=== PATIENT | male | born 1960 | race Caucasian/White ===

== ENCOUNTER 2019-12-19 09:54 | Outpatient (CLI) | payer MEDICAID, SELFPAY ==
--- NOTE | 2019-12-19 12:15 | ONC FU_ITS ---
Dr. Saeed follow up note Patient: Ron Robles Unit #: [id number]: 1960 Dicatated By: Luis Maunel Saeed M.D.Date of Visit:Dec 19, 2019 Onc Med Follow-up/Prog Note History of Present Illness: Mr. Robles is a 58-year-old gentleman with recent history of acute mental status changes including ataxia with frequent falls, loss of short-term memory and severe headaches. He underwent CT scan of the head in March 2018 which showed extensive edema surrounding an apparent mass in the left parieto-occipital region. Mr Robles was referred to [facility] for further evaluation. He did have a cranial MRI scan done on 03/20/2018 which confirmed a solitary 2.5 cm left parietal occipital mass. CT scan of chest done on 03/22/2018 showed numerous nodules consistent with pulmonary metastatic disease bilaterally. The largest nodule was 1.9 cm right lower lobe. Marginal adenopathy was evident in the right hilar, AP window, pretracheal and subcarinal regions. CT scan of abdomen pelvis showed an 8 cm mass in the right kidney, with no evident of merry, hepatic or osseous disease. CT-guided biopsy of nodule in right lower lobe was done on 03/26/2018 and it reported metastatic renal cell carcinoma. On 03/27/2018 he underwent left parieto-occipital craniotomy with resection of the solitary intracranial metastasis. Postop cranial MRIs done on 03/28/2018 showed no evidence of residual tumor or acute complication. now s/p postop cranial radiation. Status post palliative right nephrectomy on 08/03/2018 Now being treated with Sutent since 06/11/2018 Follow-up CT scan of chest done on 10/25/2018 showed numerous multilobar pulmonary nodules with the largest measuring 20 mm in the right lower lobe consistent with metastatic disease Necrotic lymph node right suprahilar region measures 1.6 cm status post right nephrectomy Cholelithiasis Right lower lobe segmental pulmonary embolism. When compared with CT scan of chest done on 03/22/2018 which showed multiple bilateral pulmonary nodules the largest being 1.9 cm in the right lower lobe and right hilar lymph node 1.5 cm. Follow-up CT scan of chest abdomen pelvis done on 03/06/2019 showed stable disease e.g. multiple bilateral pulmonary nodules largest being in right lower lobe is 2.3 cm compared to 2 cm in October 2018 Stable right hilar lymph node No intra-abdominal metastatic disease. Indeterminate left adrenal upper pole measuring lesion 17.5 mm status post right kidney is absent status post multiple left renal cysts complaining of progressive headaches, patient has seen Dr. Martinez who has recommended changing his Keppra to depokate , In April 2019 due to progression of DVT in right lower leg, his primary care physician start him on Xarelto 2.5 mg daily. f/uMRI scan of the head done on 07/11/2019 showed postop findings are noted at the left occipital lobe. No evidence of recurrent or residual disease. Moderate to severe chronic microvascular disease. CT scan of chest abdomen pelvis done on 07/11/2019 at [facility] showed persistent but stable innumerable bilateral pulmonary nodules the largest measured 2.6 cm in the right lower lobe compared to 2.4 mm seen on previous CT scan of chest done on 03/06/2019 and enlarged mediastinal lymph nodes seen again the largest is 2.6 x 1.7 cm compared to 1.5 cm in February 2019 no significant findings seen in below diaphragm except left kidney showed multiple low density lesions most of these are too small to characterize. The largest in the inferior pole has Hounsfield unit of 4 on the delayed phase is compatible with simple cyst. No other abnormality seen. follow-upCT PET scan done on 11/12/2019 showed innumerable lung lesions largest being 3.1 cm in the right lung posterior and other or smaller in the range of 1-2 cm, 12-15 lesions in the left lung and 15-20 lesions in the right lung and is a also liver lesion , too centimeter in diameter in the right lobe with SUV 6.5. Lesion in the left ischium Tolerating Sutent well. Since last visit, Patient was in the hospital with pneumonia and sepsis/septic shock on 11/28/2019 at that time his ANC was 680. Now recovered denies any fever or chills, denies any nausea or vomiting denies any diarrhea constipation denies any hemoptysis or hematemesis denies any dysuria or hematuria. Patient has episode of fall as he tripped over something. But no seizure-like activity. Also complaining of generalized weakness and fatigue.As per his son, Sutent is on hold since his last hospitalization on 11/28/2019. And also repeating new refill to start next cycle. Medications: Dexamethasone Sod Phosphate PF 1 mL (of 10 mg/mL) Injection PRN, Docusate Sodium 1 - 2 Tablet (of 100 mg) Oral daily PRN, FentaNYL 1 Patch(es) (of 100 mcg/hr) Patch 72 Hr Transdermal q 3 days, Folic Acid 1 Tablet (of 1 mg) Oral daily, Gabapentin 1 Tablet (of 100 mg) Oral b.i.d., Lasix 1 Tablet (of 40 mg) Oral midday, Lasix 1 Tablet (of 80 mg) Oral daily, LORazepam 1 Tablet (of 0.5 mg) Oral at bedtime, MiraLax 1 Pack Oral daily PRN, oxyCODONE-Acetaminophen 1 Tablet (of 5-325 mg) Oral q 6 hours, Protonix 1 Tablet (of 40 mg) Tablet, enteric coated Oral daily, Zofran Injectable Oral Allergies: No Known Allergies. Review of Systems: Constitutional - Appetite is fair and weight is stable. No fever, chills, hot flashes, or night sweats. Energy level is poor, ENMT - No sinus congestion/drainage. No mouth sores. No sore throat or difficulty swallowing, Hematologic/Lymphatic - Patient reports bruising easily, Respiratory - Occasional shortness of breath with exertion. No cough. No pleuritic pain or hemoptysis. Pt was recently hospitalized with pneumonia, Cardiovascular - No angina pain. No palpitations, Gastrointestinal - No constipation. No nausea and vomiting. No heartburn or acid reflux. No diarrhea. No blood in the stool or black stools, Genitourinary (M) - Patient has dysuria and urinary frequency. No urgency or incontinence. Infrequent hematuria, Musculoskeletal - Chronic back pain. Positive for bone pain, Neurologic - Occasional headache or dizziness. No numbness/paresthesias or other focal neurologic symptoms, Psychiatric - Patient has anxiety and depression. Positive for insomnia. Vital Signs: Performed on Dec 19, 2019 10:02 Height - 73.00 in Weight - 247.0 lbs (HIGH) BSA - 2.35 sq.m BMI - 32.59 (HIGH) Temperature - 98.7 F Pulse - 90 /min Respiration - 20 /min BP - 128/80 mm(hg) O2 Sat - 92 % (LOW) Pain - 6 Performance Status: 1 - No physically strenuous activity, but ambulatory and able to carry out light or sedentary work (e.g. office work, light house work). (ECOG) Physical Examination: Respiratory - Lungs without wheezing, Extremities - extensive bruising on the upper extremities and 1+ edema lower extremities. Lab/Imaging: Test performed on Dec 18, 2019 10:30 Glucose 106 mg/dL BUN 26 mg/dL Creatinine 1.1 mg/dL Cr Clearance (Est) 116.0000 mL/min BUN/Creatinine Ratio 24 Absolute Value Sodium 134.0 mmol/L Potassium 3.60 mmol/L Chloride 94.0 mmol/L CO2 33 mmol/L Calcium 8.80 mg/dL Protein, Total 5.80 g/dL Albumin 3.4 g/dL Globulin 2.4 g/dL Bilirubin, Total 0.8 mg/dL Alkaline Phosphatase 55 IU/L AST (SGOT) 23.0 IU/L ALT (SGPT) 19 IU/L WBC 8.0 10^9/L RBC 3.26 10^12/L HGB 11.1 g/dL HCT 33.0 % MCV 101.0 fl MCH 34.1 pg MCHC 33.7 g/dL RDW 16.4 % Platelet Count 195 10^9/L MPV 7.0 fL Neutrophils (Gran) 5.28 10^9/L Lymphocytes 1.74 10^9/L Monocytes 0.78 10^9/L Eosinophils 0.12 10^9/L Basophils 0.04 10^9/L Manual Lymphocytes 21.9 % Manual Monocytes 9.8 % Manual Eosinophils 1.50 % Manual Basophils 0.50 % Test performed on Jul 24, 2019 13:15 TSH 2.45 uIU/mL Anion Gap 15.2 eGFR 77.0 mL/min Neutrophil % 56.2 % Lymphocyte % 28.6 % Monocyte % 11.7 % Eosinophil % 3.1 % Basophils % 0.4 % Impression: 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 scan of abdomen/pelvis showed 8 cm mass in the right kidney, with no evidence of merry, hepatic or osseous disease. Treated with adjuvant whole brain radiation starting 04/30/2018. Insomnia/occasional hallucination etiology appears multifactorial including underlying adjustment disorder/depression due to newly diagnosed metastatic renal cell carcinoma and/or recent of his young son who committed suicide, business loss due to sickness. Renal cell prognostic profiling is concerning based on international metastatic renal cell cancer database Consortium criteria , he is low/intermediate risk. In this case, recommended sunitinib 50 mg daily for 4 weeks on and then 2 weeks off and then repeat. Plan to give him 3 cycles and then repeat CT scan to assess disease response. If disease progression, then consider immunotherapy. First cycle of 4 weekly Sutent started on 06/11/2018 Status post right nephrectomy on 07/24/2018 Follow-up CT scan of chest done on 10/25/2018 showed multiple bilateral pulmonary nodules largest is to centimeter in the right lower lobe and stable right hilar lymph node measuring 1.6 cm And right lower lobe segmental pulmonary embolus when compared with CT scan of chest done on 03/22/2018 is a no significant change. CT scan of chest abdomen pelvis was done on 03/06/2019 showed multiple bilateral pulmonary nodules, the largest being in right lower lobe measuring 2.4 cm and stable right hilar lymph node and subcentimeter mediastinal lymph nodes, when compared with CT scan from October 2018, there is a no evidence of disease progression rather stable disease and no intra-abdominal disease There is indeterminate left renal upper pole lesion measuring 1.7 cm and multiple left renal cysts seen and status post right nephrectomy Plan: Discussed with patient regarding his labs white blood count 8 hemoglobin 11.1 crit 33 platelets 195,000 and CMP within normal limits and CT PET scan findings which showed stable disease/mild progression e.g. new single hepatic lesion. Clinically, patient is doing well, tolerating Sutent well but with expected side effects e.g. neutropenia, mild anemia, generalized weakness and fatigue. His follow-up CT PET scan showed stable metastatic disease to the lungs, slightly increased right lung index lesion 3.1 cm compared to 2.[address] scan of chest done in June 2020 and and single 2 cm liver metastases. Considering his overall performance status and stable/mild progression on Sutent, at this point we'll continue same and repeat scans in 3 months. Our office will try to arrange is Sutent as soon as possible so patient will start next cycle. Again intent of therapy is palliation and quality of life. Discussed with patient and his son on the telephone they expressed full understanding. Patient will return to clinic in one month with CBC CMP or we may discuss with him on face time. Signed By: Luis Manuel Saeed M.D. <<Signature on File>>
== END 2019-12-19 09:55 | disposition home or self-care (01) ==
LOC: ONCMED 09:59
PROVIDERS: Family Provider Family Medicine; PCP Family Medicine; Visit Provider Internal Medicine Hematology & Oncology
DX: C78.01 Secondary malignant neoplasm of right lung (principal); C78.02 Secondary malignant neoplasm of left lung; C79.31 Secondary malignant neoplasm of brain; C64.1 Malignant neoplasm of right kidney, except renal pelvis; G89.29 Other chronic pain; M54.9 Dorsalgia, unspecified; Z79.01 Long term (current) use of anticoagulants; Z79.899 Other long term (current) drug therapy; Z79.891 Long term (current) use of opiate analgesic; Z92.3 Personal history of irradiation; Z90.5 Acquired absence of kidney; Z86.711 Personal history of pulmonary embolism; Z86.718 Personal history of other venous thrombosis and embolism; Z87.01 Personal history of pneumonia (recurrent)
CPT/HCPCS: 99214

== ENCOUNTER 2020-01-17 10:18 | Outpatient (CLI) | payer MEDICAID, SELFPAY ==
--- NOTE | 2020-01-17 12:43 | ONC FU_ITS ---
Dr. Saeed follow up note Patient: Ron Robles Unit #: [id number]: 1960 Dicatated By: Luis Manuel Saeed M.D.Date of Visit:January 17, 2020 Onc Med Follow-up/Prog Note History of Present Illness: Mr. Robles is a 59-year-old gentleman with recent history of acute mental status changes including ataxia with frequent falls, loss of short-term memory and severe headaches. He underwent CT scan of the head in March 2018 which showed extensive edema surrounding an apparent mass in the left parieto-occipital region. Mr Robles was referred to [facility] for further evaluation. He did have a cranial MRI scan done on 03/20/2018 which confirmed a solitary 2.5 cm left parietal occipital mass. CT scan of chest done on 03/22/2018 showed numerous nodules consistent with pulmonary metastatic disease bilaterally. The largest nodule was 1.9 cm right lower lobe. Marginal adenopathy was evident in the right hilar, AP window, pretracheal and subcarinal regions. CT scan of abdomen pelvis showed an 8 cm mass in the right kidney, with no evident of merry, hepatic or osseous disease. CT-guided biopsy of nodule in right lower lobe was done on 03/26/2018 and it reported metastatic renal cell carcinoma. On 03/27/2018 he underwent left parieto-occipital craniotomy with resection of the solitary intracranial metastasis. Postop cranial MRIs done on 03/28/2018 showed no evidence of residual tumor or acute complication. now s/p postop cranial radiation. Status post palliative right nephrectomy on 08/03/2018 Now being treated with Sutent since 06/11/2018 Follow-up CT scan of chest done on 10/25/2018 showed numerous multilobar pulmonary nodules with the largest measuring 20 mm in the right lower lobe consistent with metastatic disease Necrotic lymph node right suprahilar region measures 1.6 cm status post right nephrectomy Cholelithiasis Right lower lobe segmental pulmonary embolism. When compared with CT scan of chest done on 03/22/2018 which showed multiple bilateral pulmonary nodules the largest being 1.9 cm in the right lower lobe and right hilar lymph node 1.5 cm. Follow-up CT scan of chest abdomen pelvis done on 03/06/2019 showed stable disease e.g. multiple bilateral pulmonary nodules largest being in right lower lobe is 2.3 cm compared to 2 cm in October 2018 Stable right hilar lymph node No intra-abdominal metastatic disease. Indeterminate left adrenal upper pole measuring lesion 17.5 mm status post right kidney is absent status post multiple left renal cysts complaining of progressive headaches, patient has seen Dr. Martinez who has recommended changing his Keppra to depokate , In April 2019 due to progression of DVT in right lower leg, his primary care physician start him on Xarelto 2.5 mg daily. f/uMRI scan of the head done on 07/11/2019 showed postop findings are noted at the left occipital lobe. No evidence of recurrent or residual disease. Moderate to severe chronic microvascular disease. CT scan of chest abdomen pelvis done on 07/11/2019 at [facility] showed persistent but stable innumerable bilateral pulmonary nodules the largest measured 2.6 cm in the right lower lobe compared to 2.4 mm seen on previous CT scan of chest done on 03/06/2019 and enlarged mediastinal lymph nodes seen again the largest is 2.6 x 1.7 cm compared to 1.5 cm in February 2019 no significant findings seen in below diaphragm except left kidney showed multiple low density lesions most of these are too small to characterize. The largest in the inferior pole has Hounsfield unit of 4 on the delayed phase is compatible with simple cyst. No other abnormality seen. follow-upCT PET scan done on 11/12/2019 showed innumerable lung lesions largest being 3.1 cm in the right lung posterior and other or smaller in the range of 1-2 cm, 12-15 lesions in the left lung and 15-20 lesions in the right lung and is a also liver lesion , too centimeter in diameter in the right lobe with SUV 6.5. Lesion in the left ischium Tolerating Sutent well. , Patient was in the hospital with pneumonia and sepsis/septic shock on 11/28/2019 at that time his ANC was 680. Now recovered denies any fever or chills, denies any nausea or vomiting denies any diarrhea constipation denies any hemoptysis or hematemesis denies any dysuria or hematuria. Patient has episode of fall as he tripped over something. But no seizure-like activity. Also complaining of generalized weakness and fatigue.As per his son, Sutent is on hold since his last hospitalization on 11/28/2019. Came for follow-up, complaining of generalized weakness and fatigue, unable to maintain balance, excessive sleep during daytime, not getting enough sleep at night, but no headaches blurred vision double vision, no seizure-like activity, no fever or chills, chronic hip pain is under control with current pain medication which include Duragesic patch and hydrocodone. No nausea or vomiting, no fever or chills, no hemoptysis or hematemesis, no hematuria. Medications: Dexamethasone Sod Phosphate PF 1 mL (of 10 mg/mL) Injection PRN, Docusate Sodium 1 - 2 Tablet (of 100 mg) Oral daily PRN, FentaNYL 1 Patch(es) (of 100 mcg/hr) Patch 72 Hr Transdermal q 3 days, Folic Acid 1 Tablet (of 1 mg) Oral daily, Gabapentin 1 Tablet (of 100 mg) Oral b.i.d., Lasix 1 Tablet (of 40 mg) Oral midday, Lasix 1 Tablet (of 80 mg) Oral daily, LORazepam 1 Tablet (of 0.5 mg) Oral at bedtime, MiraLax 1 Pack Oral daily PRN, oxyCODONE-Acetaminophen 1 Tablet (of 5-325 mg) Oral q 6 hours, Protonix 1 Tablet (of 40 mg) Tablet, enteric coated Oral daily, Zofran Injectable Oral Allergies: No Known Allergies. Review of Systems: Constitutional - Appetite is poor and weight is stable. No fever, chills, hot flashes, or night sweats. Energy level is extremely poor, Pt appears lethargic and falls asleep during visit, ENMT - No sinus congestion/drainage. No mouth sores. No sore throat or difficulty swallowing, Hematologic/Lymphatic - Patient reports bruising easily, Respiratory - Positive for shortness of breath with exertion. No cough. No pleuritic pain or hemoptysis, Cardiovascular - No angina pain. No palpitations, Gastrointestinal - No constipation. No nausea and vomiting. No heartburn or acid reflux. No diarrhea. No blood in the stool or black stools, Genitourinary (M) - Patient has dysuria and urinary frequency. No urgency or incontinence, Musculoskeletal - Chronic back pain. Positive for bone pain, Integumentary - Pt has numerous abrasions and bruises from recent falls, Neurologic - Occasional headache or dizziness. No numbness/paresthesias or other focal neurologic symptoms, Psychiatric - Patient has anxiety and depression. Positive for insomnia. Vital Signs: Performed on January 17, 2020 10:54 Height - 73.00 in Weight - 236.2 lbs (LOW) BSA - 2.31 sq.m BMI - 31.16 (HIGH) Temperature - 97.6 F (LOW) Pulse - 89 /min Respiration - 17 /min BP - 101/67 mm(hg) O2 Sat - 89 % (LOW) Pain - 8 Performance Status: 3 - Capable of only limited self-care, confined to bed or chair more than 50% of waking hours. (ECOG) Physical Examination: ENMT - denies mouth sores or thrush, Respiratory - poor air entry, no wheezing, Cardiovascular - Regular rate and rhythm, Abdomen - bowel sounds present, nontender, Extremities - 1+ edema bilaterally. Lab/Imaging: Test performed on Jan 15, 2020 13:00 Glucose 95 mg/dL BUN 31 mg/dL Creatinine 1.1 mg/dL Cr Clearance (Est) 116.00 mL/min Sodium 134.0 mmol/L Potassium 3.50 mmol/L Chloride 96.0 mmol/L CO2 27 mmol/L Calcium 8.90 mg/dL Protein, Total 6.10 g/dL Albumin 3.6 g/dL Globulin 2.5 g/dL Bilirubin, Total 0.7 mg/dL Alkaline Phosphatase 46 IU/L AST (SGOT) 18.0 IU/L ALT (SGPT) 15 IU/L WBC 11.5 10^9/L RBC 3.53 10^12/L HGB 11.4 g/dL HCT 34.4 % MCV 97.0 fl MCH 32.2 pg MCHC 33.1 g/dL RDW 14.9 % Platelet Count 231 10^9/L MPV 6.9 fL Test performed on Dec 18, 2019 10:30 BUN/Creatinine Ratio 24 Absolute Value Neutrophils (Gran) 5.28 10^9/L Lymphocytes 1.74 10^9/L Monocytes 0.78 10^9/L Eosinophils 0.12 10^9/L Basophils 0.04 10^9/L Manual Lymphocytes 21.9 % Manual Monocytes 9.8 % Manual Eosinophils 1.50 % Manual Basophils 0.50 % Test performed on Jul 24, 2019 13:15 TSH 2.45 uIU/mL Anion Gap 15.2 eGFR 77.0 mL/min Neutrophil % 56.2 % Lymphocyte % 28.6 % Monocyte % 11.7 % Eosinophil % 3.1 % Basophils % 0.4 % Impression: 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 scan of abdomen/pelvis showed 8 cm mass in the right kidney, with no evidence of merry, hepatic or osseous disease. Treated with adjuvant whole brain radiation starting 04/30/2018. Insomnia/occasional hallucination etiology appears multifactorial including underlying adjustment disorder/depression due to newly diagnosed metastatic renal cell carcinoma and/or recent of his young son who committed suicide, business loss due to sickness. Renal cell prognostic profiling is concerning based on international metastatic renal cell cancer database Consortium criteria , he is low/intermediate risk. In this case, recommended sunitinib 50 mg daily for 4 weeks on and then 2 weeks off and then repeat. Plan to give him 3 cycles and then repeat CT scan to assess disease response. If disease progression, then consider immunotherapy. First cycle of 4 weekly Sutent started on 06/11/2018 Status post right nephrectomy on 07/24/2018 Follow-up CT scan of chest done on 10/25/2018 showed multiple bilateral pulmonary nodules largest is to centimeter in the right lower lobe and stable right hilar lymph node measuring 1.6 cm And right lower lobe segmental pulmonary embolus when compared with CT scan of chest done on 03/22/2018 is a no significant change. CT scan of chest abdomen pelvis was done on 03/06/2019 showed multiple bilateral pulmonary nodules, the largest being in right lower lobe measuring 2.4 cm and stable right hilar lymph node and subcentimeter mediastinal lymph nodes, when compared with CT scan from October 2018, there is a no evidence of disease progression rather stable disease and no intra-abdominal disease There is indeterminate left renal upper pole lesion measuring 1.7 cm and multiple left renal cysts seen and status post right nephrectomy Plan: Discussed with patient and his caregiver regarding his labs white blood count 11.5 hemoglobin 11.4, hematocrit 34.4 platelets 231,000 CMP within normal limits Clinically, patient is doing reasonably well but overall performance status is declining patient lives alone but has a family friend living close by. But it appears patient may need constant supervision. longterm may be a better place for him. Other option would be hospice care , as due to weight gain, patient may have underlying sleep apnea but considering his terminal disease, and may not be candidate for sleep studies or CPAP machine. And now with sedation and frequent fall, patient was advised to cut down pain medication but as per patient then his hip pain is unbearable. Role of hospice was discussed with patient, his caregiver and son and nephew on telephone . His son named Bryn and his nephew Yogesh, said they we'll discuss with other family members and make a decision, regarding longterm placement or hospice over the weekend. In the meantime we will hold his Sutent until further decision and evaluation and continue with comfort care. Patient will return to clinic in one month unless decided to go to hospice. Signed By: Luis Manuel Saeed M.D. <<Signature on File>>
== END 2020-01-17 10:19 | disposition home or self-care (01) ==
LOC: ONCMED 10:21
PROVIDERS: Family Provider Family Medicine; PCP Family Medicine; Visit Provider Internal Medicine Hematology & Oncology
DX: C64.1 Malignant neoplasm of right kidney, except renal pelvis (principal); C79.02 Secondary malignant neoplasm of left kidney and renal pelvis; C79.31 Secondary malignant neoplasm of brain; C78.01 Secondary malignant neoplasm of right lung; C78.02 Secondary malignant neoplasm of left lung; F51.02 Adjustment insomnia; F32.9 Major depressive disorder, single episode, unspecified; N28.1 Cyst of kidney, acquired; Z90.5 Acquired absence of kidney; Z91.81 History of falling; Z79.899 Other long term (current) drug therapy
CPT/HCPCS: 99214

== ENCOUNTER 2020-02-20 14:13 | Outpatient (CLI) | payer MEDICAID, SELFPAY ==
[2020-02-20 14:57] LABS: Basophils % 0.4 %; Eosinophils % 0.2 %; Hematocrit 33.9 % (42.0-52.0); Hemoglobin 10.5 g/dL (11.7-16.6); Lymphocytes # 1.3 10^3/uL (0.8-4.8); Mean Corpuscular Hemoglobin 28.8 pg (28.0-34.0); Mean Corpuscular Volume 93.1 fL (80-94); Mean Platelet Volume 9.7 fL (7.4-10.4); Monocytes # 0.7 10^3/uL (0.2-0.9); Monocytes % 8.7 %; Neutrophils # 6.4 10^3/uL (1.8-7.7); Neutrophils % 75.2 %; Nucleated Red Blood Cells % 0 %; Platelet Count 192 10^3/cmm (130-400); Red Blood Count 3.64 10^6/uL (4.1-5.3); Red Cell Distribution Width 17.6 % (12.1-15.1); White Blood Count 8.5 10^3/uL (4.0-10.0)
[2020-02-20 15:00] LABS: Alanine Aminotransferase 6 U/L (0-41); Albumin Level 3.6 g/dL (3.5-5.2); Alkaline Phosphatase 30 IU/L (40-130); Anion Gap 15.3 (5-19); Aspartate Amino Transferase 12 U/L (0-40); Blood Urea Nitrogen 15 mg/dL (6-20); Calcium 9.9 mg/dL (8.5-10.5); Carbon Dioxide 32 mmol/L (22-29); Chloride 89 mmol/L (98-107); Globulin 3.5 g/dL (1.3-4.6); Glomerular Filtration Rate 62.2 mL/min (90-130); Glucose 97 mg/dL (65-115); Osmolality Calculated 272 mOsm/kg (285-295); Potassium 3.3 mmol/L (3.5-5.1); Sodium 133 mmol/L (136-145); Total Bilirubin 0.3 mg/dL (0.15-1.2); Total Protein 7.1 g/dL (6.6-8.7)
--- NOTE | 2020-02-20 16:13 | ONC FU_ITS ---
Dr. Saeed follow up note Patient: Ron Robles Unit #: [id number]: 1960 Dicatated By: Luis Manuel Saeed M.D.Date of Visit:Feb 20, 2020 Onc Med Follow-up/Prog Note History of Present Illness: Mr. Robles is a 59-year-old gentleman with recent history of acute mental status changes including ataxia with frequent falls, loss of short-term memory and severe headaches. He underwent CT scan of the head in March 2018 which showed extensive edema surrounding an apparent mass in the left parieto-occipital region. Mr Robles was referred to [facility] for further evaluation. He did have a cranial MRI scan done on 03/20/2018 which confirmed a solitary 2.5 cm left parietal occipital mass. CT scan of chest done on 03/22/2018 showed numerous nodules consistent with pulmonary metastatic disease bilaterally. The largest nodule was 1.9 cm right lower lobe. Marginal adenopathy was evident in the right hilar, AP window, pretracheal and subcarinal regions. CT scan of abdomen pelvis showed an 8 cm mass in the right kidney, with no evident of merry, hepatic or osseous disease. CT-guided biopsy of nodule in right lower lobe was done on 03/26/2018 and it reported metastatic renal cell carcinoma. On 03/27/2018 he underwent left parieto-occipital craniotomy with resection of the solitary intracranial metastasis. Postop cranial MRIs done on 03/28/2018 showed no evidence of residual tumor or acute complication. now s/p postop cranial radiation. Status post palliative right nephrectomy on 08/03/2018 Now being treated with Sutent since 06/11/2018 Follow-up CT scan of chest done on 10/25/2018 showed numerous multilobar pulmonary nodules with the largest measuring 20 mm in the right lower lobe consistent with metastatic disease Necrotic lymph node right suprahilar region measures 1.6 cm status post right nephrectomy Cholelithiasis Right lower lobe segmental pulmonary embolism. When compared with CT scan of chest done on 03/22/2018 which showed multiple bilateral pulmonary nodules the largest being 1.9 cm in the right lower lobe and right hilar lymph node 1.5 cm. Follow-up CT scan of chest abdomen pelvis done on 03/06/2019 showed stable disease e.g. multiple bilateral pulmonary nodules largest being in right lower lobe is 2.3 cm compared to 2 cm in October 2018 Stable right hilar lymph node No intra-abdominal metastatic disease. Indeterminate left adrenal upper pole measuring lesion 17.5 mm status post right kidney is absent status post multiple left renal cysts complaining of progressive headaches, patient has seen Dr. Martinez who has recommended changing his Keppra to depokate , In April 2019 due to progression of DVT in right lower leg, his primary care physician start him on Xarelto 2.5 mg daily. f/uMRI scan of the head done on 07/11/2019 showed postop findings are noted at the left occipital lobe. No evidence of recurrent or residual disease. Moderate to severe chronic microvascular disease. CT scan of chest abdomen pelvis done on 07/11/2019 at [facility] showed persistent but stable innumerable bilateral pulmonary nodules the largest measured 2.6 cm in the right lower lobe compared to 2.4 mm seen on previous CT scan of chest done on 03/06/2019 and enlarged mediastinal lymph nodes seen again the largest is 2.6 x 1.7 cm compared to 1.5 cm in February 2019 no significant findings seen in below diaphragm except left kidney showed multiple low density lesions most of these are too small to characterize. The largest in the inferior pole has Hounsfield unit of 4 on the delayed phase is compatible with simple cyst. No other abnormality seen. follow-upCT PET scan done on 11/12/2019 showed innumerable lung lesions largest being 3.1 cm in the right lung posterior and other or smaller in the range of 1-2 cm, 12-15 lesions in the left lung and 15-20 lesions in the right lung and is a also liver lesion , too centimeter in diameter in the right lobe with SUV 6.5. Lesion in the left ischium Tolerating Sutent well. , Patient was in the hospital with pneumonia and sepsis/septic shock on 11/28/2019 at that time his ANC was 680. Now recovered denies any fever or chills, denies any nausea or vomiting denies any diarrhea constipation denies any hemoptysis or hematemesis denies any dysuria or hematuria. Patient has episode of fall as he tripped over something. But no seizure-like activity. Also complaining of generalized weakness and fatigue.As per his son, Sutent is on hold since his last hospitalization on 11/28/2019 Restarted on Sutent on February 20, 2020 Came for follow-up, overall feeling much better, Patient was recently admitted to hospital in [facility] with urine tract infection and fluid overload, treated with IV antibiotic and Lasix, he is taking Lasix 80 mg in the morning 40 mg in the evening, not sure about potassium supplements. Overall patient is feeling better and now wants to go back and try Sutent again and would not consider hospice at this point. Denies any fever chills denies any nausea or vomiting denies any diarrhea or constipation, overall feeling much better Medications: Dexamethasone Sod Phosphate PF 1 mL (of 10 mg/mL) Injection PRN, Docusate Sodium 1 - 2 Tablet (of 100 mg) Oral daily PRN, FentaNYL 1 Patch(es) (of 100 mcg/hr) Patch 72 Hr Transdermal q 3 days, Folic Acid 1 Tablet (of 1 mg) Oral daily, Gabapentin 1 Tablet (of 100 mg) Oral b.i.d., Lasix 1 Tablet (of 40 mg) Oral midday, Lasix 1 Tablet (of 80 mg) Oral daily, LORazepam 1 Tablet (of 0.5 mg) Oral at bedtime, MiraLax 1 Pack Oral daily PRN, oxyCODONE-Acetaminophen 1 Tablet (of 5-325 mg) Oral q 6 hours, Protonix 1 Tablet (of 40 mg) Tablet, enteric coated Oral daily, Zofran Injectable Oral Allergies: No Known Allergies. Review of Systems: Constitutional - Appetite is poor and weight is stable. No fever, chills, hot flashes, or night sweats. Energy level is poor, ENMT - No sinus congestion/drainage. No mouth sores. No sore throat or difficulty swallowing, Hematologic/Lymphatic - Patient reports bruising easily, Respiratory - Positive for shortness of breath with exertion. No cough. No pleuritic pain or hemoptysis, Cardiovascular - No angina pain. No palpitations, Gastrointestinal - No constipation. No nausea and vomiting. No heartburn or acid reflux. No diarrhea. No blood in the stool or black stools, Genitourinary (M) - Patient has dysuria and urinary frequency. No urgency or incontinence, Musculoskeletal - Chronic back pain. Positive for bone pain, Neurologic - Occasional headache or dizziness. Positive for history of falls, Psychiatric - Patient has anxiety and depression. Positive for insomnia. Vital Signs: Performed on Feb 20, 2020 15:29 Height - 73.00 in Weight - 227.0 lbs (LOW) BSA - 2.27 sq.m BMI - 29.95 Temperature - 99.1 F (HIGH) Pulse - 74 /min Respiration - 22 /min BP - 102/69 mm(hg) O2 Sat - 92 % (LOW) Pain - 7 Performance Status: 1 - No physically strenuous activity, but ambulatory and able to carry out light or sedentary work (e.g. office work, light house work). (ECOG) Physical Examination: ENMT - No mouth sores, no thrush, no jaundice, Respiratory - Lungs are clear, Cardiovascular - Regular rate and rhythm of heart, Abdomen - Soft, bowel sounds present, Extremities - 1+ edema bilaterally. Lab/Imaging: Test performed on Jan 15, 2020 13:00 Glucose 95 mg/dL BUN 31 mg/dL Creatinine 1.1 mg/dL Cr Clearance (Est) 116.00 mL/min Sodium 134.0 mmol/L Potassium 3.50 mmol/L Chloride 96.0 mmol/L CO2 27 mmol/L Calcium 8.90 mg/dL Protein, Total 6.10 g/dL Albumin 3.6 g/dL Globulin 2.5 g/dL Bilirubin, Total 0.7 mg/dL Alkaline Phosphatase 46 IU/L AST (SGOT) 18.0 IU/L ALT (SGPT) 15 IU/L WBC 11.5 10^9/L RBC 3.53 10^12/L HGB 11.4 g/dL HCT 34.4 % MCV 97.0 fl MCH 32.2 pg MCHC 33.1 g/dL RDW 14.9 % Platelet Count 231 10^9/L MPV 6.9 fL Test performed on Dec 18, 2019 10:30 BUN/Creatinine Ratio 24 Absolute Value Neutrophils (Gran) 5.28 10^9/L Lymphocytes 1.74 10^9/L Monocytes 0.78 10^9/L Eosinophils 0.12 10^9/L Basophils 0.04 10^9/L Manual Lymphocytes 21.9 % Manual Monocytes 9.8 % Manual Eosinophils 1.50 % Manual Basophils 0.50 % Impression: 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 scan of abdomen/pelvis showed 8 cm mass in the right kidney, with no evidence of merry, hepatic or osseous disease. Treated with adjuvant whole brain radiation starting 04/30/2018. Insomnia/occasional hallucination etiology appears multifactorial including underlying adjustment disorder/depression due to newly diagnosed metastatic renal cell carcinoma and/or recent of his young son who committed suicide, business loss due to sickness. Renal cell prognostic profiling is concerning based on international metastatic renal cell cancer database Consortium criteria , he is low/intermediate risk. In this case, recommended sunitinib 50 mg daily for 4 weeks on and then 2 weeks off and then repeat. Plan to give him 3 cycles and then repeat CT scan to assess disease response. If disease progression, then consider immunotherapy. First cycle of 4 weekly Sutent started on 06/11/2018 Status post right nephrectomy on 07/24/2018 Follow-up CT scan of chest done on 10/25/2018 showed multiple bilateral pulmonary nodules largest is to centimeter in the right lower lobe and stable right hilar lymph node measuring 1.6 cm And right lower lobe segmental pulmonary embolus when compared with CT scan of chest done on 03/22/2018 is a no significant change. CT scan of chest abdomen pelvis was done on 03/06/2019 showed multiple bilateral pulmonary nodules, the largest being in right lower lobe measuring 2.4 cm and stable right hilar lymph node and subcentimeter mediastinal lymph nodes, when compared with CT scan from October 2018, there is a no evidence of disease progression rather stable disease and no intra-abdominal disease There is indeterminate left renal upper pole lesion measuring 1.7 cm and multiple left renal cysts seen and status post right nephrectomy Plan: Discussed with patient regarding his labs white blood count 8.5 hemoglobin 10.5 hematocrit 33.9 platelets 192,000 CMP within normal limit except potassium 3.3 and creatinine 1.2 Clinically, patient is doing reasonably well, much better compared to last visit, at that time he was referred to hospice but patient did talk to his son and his friend and decided not to consider hospice. Patient started having foul-smelling urine and generalized weakness and fatigue for which he went to [facility] where he was treated for urine tract infection and fluid overload, since then he is feeling much better, more energetic and more alert, not using breakthrough pain medicine but fentanyl patch alone. Patient said he has decided to on Sutent and wants to continue what he has been doing. So we will prescribe him Sutent 50 mg p.o. daily and he will take it for 4 weeks and then 2 weeks off and return to clinic in 6 weeks with CBC CMP. As per his mildly elevated creatinine and mild hypokalemia is concerned, most likely due to diuresis, now his fluid overload has improved significantly, we will suggest decreasing Lasix dose to 40 mg in the morning instead of 80 mg and then continue with 40 mg in the evening and also give him potassium supplement and then suggested repeating potassium level in a week to ensure resolution of mild hypokalemia. Also recommend continue to use potassium supplement along wiith lasix and If patient continues to feel better and his performance status continues to improve then will consider CT scan of the chest abdomen pelvis to assess the response or disease status after he complete 2 cycles of Sutent. Signed By: Luis Manuel Saeed M.D. <<Signature on File>>
== END 2020-02-20 14:14 | disposition home or self-care (01) ==
LOC: ONCMED 14:17
PROVIDERS: PCP Family Medicine; Visit Provider Internal Medicine Hematology & Oncology
DX: C64.1 Malignant neoplasm of right kidney, except renal pelvis (principal); C79.31 Secondary malignant neoplasm of brain; C78.01 Secondary malignant neoplasm of right lung; F41.9 Anxiety disorder, unspecified; F32.9 Major depressive disorder, single episode, unspecified; I10 Essential (primary) hypertension; Z92.3 Personal history of irradiation; Z79.899 Other long term (current) drug therapy
CPT/HCPCS: 36415; 80053; 85025; 99214

== ENCOUNTER 2020-04-02 08:59 | Outpatient (CLI) | payer MEDICAID, SELFPAY ==
[2020-04-02 09:29] LABS: Basophils % 0.1 %; Lymphocytes # 1.3 10^3/uL (0.8-4.8); Lymphocytes % 8.4 %; Mean Corpuscular HGB Conc 30.6 g/dL (30.0-36.0); Mean Corpuscular Hemoglobin 26.6 pg (28.0-34.0); Mean Corpuscular Volume 87.2 fL (80-94); Mean Platelet Volume 8.9 fL (7.4-10.4); Monocytes % 6.2 %; Neutrophils # 12.88 10^3/uL (1.8-7.7); Neutrophils % 84.7 %; Nucleated Red Blood Cells % 0 %; Platelet Count 150 10^3/cmm (130-400); Red Blood Count 4.13 10^6/uL (4.1-5.3); Red Cell Distribution Width 18.1 % (12.1-15.1); White Blood Count 15.2 10^3/uL (4.0-10.0)
[2020-04-02 09:50] LABS: Alanine Aminotransferase 7 U/L (0-41); Albumin Level 3.5 g/dL (3.5-5.2); Alkaline Phosphatase 32 IU/L (40-130); Anion Gap 13.8 (5-19); Aspartate Amino Transferase 8 U/L (0-40); Blood Urea Nitrogen 17 mg/dL (6-20); Calcium 9.1 mg/dL (8.5-10.5); Carbon Dioxide 30 mmol/L (22-29); Chloride 95 mmol/L (98-107); Globulin 3.4 g/dL (1.3-4.6); Glomerular Filtration Rate 76.7 mL/min (90-130); Glucose 96 mg/dL (65-115); Osmolality Calculated 276 mOsm/kg (285-295); Potassium 3.8 mmol/L (3.5-5.1); Sodium 135 mmol/L (136-145); Total Bilirubin 0.4 mg/dL (0.15-1.2); Total Protein 6.9 g/dL (6.6-8.7)
--- NOTE | 2020-04-02 11:22 | ONC FU_ITS ---
Dr. Saeed follow up note Patient: Ron Robles Unit #: [id number]: 1960 Dicatated By: Luis Manuel Saeed M.D.Date of Visit:Apr 02, 2020 Onc Med Follow-up/Prog Note History of Present Illness: Mr. Robles is a 59-year-old gentleman with recent history of acute mental status changes including ataxia with frequent falls, loss of short-term memory and severe headaches. He underwent CT scan of the head in March 2018 which showed extensive edema surrounding an apparent mass in the left parieto-occipital region. Mr Robles was referred to [facility] for further evaluation. He did have a cranial MRI scan done on 03/20/2018 which confirmed a solitary 2.5 cm left parietal occipital mass. CT scan of chest done on 03/22/2018 showed numerous nodules consistent with pulmonary metastatic disease bilaterally. The largest nodule was 1.9 cm right lower lobe. Marginal adenopathy was evident in the right hilar, AP window, pretracheal and subcarinal regions. CT scan of abdomen pelvis showed an 8 cm mass in the right kidney, with no evident of merry, hepatic or osseous disease. CT-guided biopsy of nodule in right lower lobe was done on 03/26/2018 and it reported metastatic renal cell carcinoma. On 03/27/2018 he underwent left parieto-occipital craniotomy with resection of the solitary intracranial metastasis. Postop cranial MRIs done on 03/28/2018 showed no evidence of residual tumor or acute complication. now s/p postop cranial radiation. Status post palliative right nephrectomy on 08/03/2018 Now being treated with Sutent since 06/11/2018 Follow-up CT scan of chest done on 10/25/2018 showed numerous multilobar pulmonary nodules with the largest measuring 20 mm in the right lower lobe consistent with metastatic disease Necrotic lymph node right suprahilar region measures 1.6 cm status post right nephrectomy Cholelithiasis Right lower lobe segmental pulmonary embolism. When compared with CT scan of chest done on 03/22/2018 which showed multiple bilateral pulmonary nodules the largest being 1.9 cm in the right lower lobe and right hilar lymph node 1.5 cm. Follow-up CT scan of chest abdomen pelvis done on 03/06/2019 showed stable disease e.g. multiple bilateral pulmonary nodules largest being in right lower lobe is 2.3 cm compared to 2 cm in October 2018 Stable right hilar lymph node No intra-abdominal metastatic disease. Indeterminate left adrenal upper pole measuring lesion 17.5 mm status post right kidney is absent status post multiple left renal cysts complaining of progressive headaches, patient has seen Dr. Martinez who has recommended changing his Keppra to depokate , In April 2019 due to progression of DVT in right lower leg, his primary care physician start him on Xarelto 2.5 mg daily. f/uMRI scan of the head done on 07/11/2019 showed postop findings are noted at the left occipital lobe. No evidence of recurrent or residual disease. Moderate to severe chronic microvascular disease. CT scan of chest abdomen pelvis done on 07/11/2019 at [facility] showed persistent but stable innumerable bilateral pulmonary nodules the largest measured 2.6 cm in the right lower lobe compared to 2.4 mm seen on previous CT scan of chest done on 03/06/2019 and enlarged mediastinal lymph nodes seen again the largest is 2.6 x 1.7 cm compared to 1.5 cm in February 2019 no significant findings seen in below diaphragm except left kidney showed multiple low density lesions most of these are too small to characterize. The largest in the inferior pole has Hounsfield unit of 4 on the delayed phase is compatible with simple cyst. No other abnormality seen. follow-upCT PET scan done on 11/12/2019 showed innumerable lung lesions largest being 3.1 cm in the right lung posterior and other or smaller in the range of 1-2 cm, 12-15 lesions in the left lung and 15-20 lesions in the right lung and is a also liver lesion , too centimeter in diameter in the right lobe with SUV 6.5. Lesion in the left ischium Tolerating Sutent well. , Patient was in the hospital with pneumonia and sepsis/septic shock on 11/28/2019 at that time his ANC was 680. Now recovered denies any fever or chills, denies any nausea or vomiting denies any diarrhea constipation denies any hemoptysis or hematemesis denies any dysuria or hematuria. Patient has episode of fall as he tripped over something. But no seizure-like activity. Also complaining of generalized weakness and fatigue.As per his son, Sutent is on hold since his last hospitalization on 11/28/2019 Restarted on Sutent on February 20, 2020 Patient was given prescription on February 20, 2020 but could not get filled because of insurance issues then Sutent from patient assistantace program was considered and patient still waiting for medication the last time he took Sutent was, as per patient in January 2020 Came for follow-up, denies any specific complaints except chronic upper back pain which is under control with current pain medication With a Duragesic patch, not requiring breakthrough pain medicine other than that no fever chills no nausea or vomiting no diarrhea constipation no headaches blurred vision double vision quality of life is better and improving Medications: Dexamethasone Sod Phosphate PF 1 mL (of 10 mg/mL) Injection PRN, Docusate Sodium 1 - 2 Tablet (of 100 mg) Oral daily PRN, FentaNYL 1 Patch(es) (of 100 mcg/hr) Patch 72 Hr Transdermal q 3 days, Folic Acid 1 Tablet (of 1 mg) Oral daily, Gabapentin 1 Tablet (of 100 mg) Oral b.i.d., Lasix 1 Tablet (of 80 mg) Oral daily, LORazepam 1 Tablet (of 0.5 mg) Oral at bedtime, MiraLax 1 Pack Oral daily PRN, oxyCODONE-Acetaminophen 1 Tablet (of 5-325 mg) Oral q 6 hours, Protonix 1 Tablet (of 40 mg) Tablet, enteric coated Oral daily, Zofran Injectable Oral Allergies: No Known Allergies. Review of Systems: Constitutional - Appetite is poor and weight is stable. No fever, chills, hot flashes, or night sweats. Energy level is poor, ENMT - No sinus congestion/drainage. No mouth sores. No sore throat or difficulty swallowing, Hematologic/Lymphatic - Patient reports bruising easily, Respiratory - Positive for shortness of breath with exertion. No cough. No pleuritic pain or hemoptysis, Cardiovascular - No angina pain. No palpitations, Gastrointestinal - No constipation. No nausea and vomiting. No heartburn or acid reflux. No diarrhea. No blood in the stool or black stools, Genitourinary (M) - Patient has dysuria and urinary frequency. No urgency or incontinence, Musculoskeletal - Chronic back pain. Positive for bone pain, Integumentary - Pt has numerous abrasions and bruises from recent falls, Neurologic - Occasional headache or dizziness. Positive for history of falls, Psychiatric - Patient has anxiety and depression. Positive for insomnia. Vital Signs: Vitals are not available for this patient. Performance Status: 1 - No physically strenuous activity, but ambulatory and able to carry out light or sedentary work (e.g. office work, light house work). (ECOG) Physical Examination: ENMT - No mouth sores, no thrush,, Respiratory - Lungs are clear, Cardiovascular - Regular rate and rhythm of heart, Abdomen - no jaundice soft, bowel sounds present, Extremities - No visible edema. Lab/Imaging: Test performed on Feb 26, 2020 12:50 Glucose 80 mg/dL BUN 15 mg/dL Creatinine 1.2 mg/dL Cr Clearance (Est) 97.72 mL/min Sodium 135 mmol/L Potassium 3.60 mmol/L Chloride 98.0 mmol/L CO2 32 mmol/L Calcium 9.10 mg/dL Test performed on Feb 20, 2020 14:20 Anion Gap 15.3 eGFR 62.2 mL/min Protein, Total 7.1 g/dL Albumin 3.6 g/dL Globulin 3.5 g/dL Bilirubin, Total 0.3 mg/dL ALT (SGPT) 6 U/L AST (SGOT) 12 U/L Alkaline Phosphatase 30 IU/L WBC 8.5 10 3/uL RBC 3.64 10 6/uL HGB 10.5 g/dL HCT 33.9 % MCV 93.1 fL MCH 28.8 pg MCHC 31.0 g/dL RDW 17.6 % Platelet Count 192 10 3/cmm MPV 9.7 fL Neutrophils 6.4 10 3/uL Lymphocytes 1.3 10 3/uL Monocytes 0.7 10 3/uL Eosinophils 0.0 10 3/uL Basophils 0.0 10 3/uL Neutrophil % 75.2 % Lymphocyte % 15.0 % Monocyte % 8.7 % Eosinophil % 0.2 % Basophils % 0.4 % Test performed on Dec 18, 2019 10:30 BUN/Creatinine Ratio 24 Absolute Value Manual Lymphocytes 21.9 % Manual Monocytes 9.8 % Manual Eosinophils 1.50 % Manual Basophils 0.50 % Impression: 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 scan of abdomen/pelvis showed 8 cm mass in the right kidney, with no evidence of merry, hepatic or osseous disease. Treated with adjuvant whole brain radiation starting 04/30/2018. Insomnia/occasional hallucination etiology appears multifactorial including underlying adjustment disorder/depression due to newly diagnosed metastatic renal cell carcinoma and/or recent of his young son who committed suicide, business loss due to sickness. Renal cell prognostic profiling is concerning based on international metastatic renal cell cancer database Consortium criteria , he is low/intermediate risk. In this case, recommended sunitinib 50 mg daily for 4 weeks on and then 2 weeks off and then repeat. Plan to give him 3 cycles and then repeat CT scan to assess disease response. If disease progression, then consider immunotherapy. First cycle of 4 weekly Sutent started on 06/11/2018 Status post right nephrectomy on 07/24/2018 Follow-up CT scan of chest done on 10/25/2018 showed multiple bilateral pulmonary nodules largest is to centimeter in the right lower lobe and stable right hilar lymph node measuring 1.6 cm And right lower lobe segmental pulmonary embolus when compared with CT scan of chest done on 03/22/2018 is a no significant change. CT scan of chest abdomen pelvis was done on 03/06/2019 showed multiple bilateral pulmonary nodules, the largest being in right lower lobe measuring 2.4 cm and stable right hilar lymph node and subcentimeter mediastinal lymph nodes, when compared with CT scan from October 2018, there is a no evidence of disease progression rather stable disease and no intra-abdominal disease There is indeterminate left renal upper pole lesion measuring 1.7 cm and multiple left renal cysts seen and status post right nephrectomy Plan: Discussed with patient regarding his labs white blood count 15.2 hemoglobin 11 crit 36 platelets 150,000 CMP within normal limits Clinically, patient is doing well, with no new signs symptoms, still awaiting his Sutent, although he was given prescription on February 20, 2020 but because of insurance issues he could not get it filled so medication from patient assistance program was tried and as per nurse, medicine was dispatched to his home address but patient still waiting, he will discuss with patient navigator regarding status in the meantime will consider CT scan of chest abdomen pelvis to assess disease status and patient was advised to restart his Sutent when he gets it and we will see him back in a month with CBC CMP and CT scan of chest abdomen pelvis Signed By: Luis Manuel Saeed M.D. <<Signature on File>>
== END 2020-04-02 09:00 | disposition home or self-care (01) ==
LOC: ONCMED 09:03
PROVIDERS: PCP Family Medicine; Visit Provider Internal Medicine Hematology & Oncology
DX: C78.01 Secondary malignant neoplasm of right lung (principal); C78.02 Secondary malignant neoplasm of left lung; C79.51 Secondary malignant neoplasm of bone; C64.1 Malignant neoplasm of right kidney, except renal pelvis; K80.20 Calculus of gallbladder without cholecystitis without obstruction; Z79.899 Other long term (current) drug therapy; Z79.891 Long term (current) use of opiate analgesic; Z90.5 Acquired absence of kidney; Z86.711 Personal history of pulmonary embolism; Z86.718 Personal history of other venous thrombosis and embolism; Z87.01 Personal history of pneumonia (recurrent)
CPT/HCPCS: 80053; 85025; 99214